=== PATIENT | male | born 1990 | race Two or more races ===

== ENCOUNTER 2017-04-18 01:38 | Emergency (ER) | payer SELFPAY ==
[~2017-04-18] VITALS: Ht 160 cm; Wt 52.5 kg
[2017-04-18 01:41] VITALS: BP 120/88
== END 2017-04-18 01:59 | disposition left against medical advice (07) ==
LOC: ED 01:53
DX: Z53.21 Procedure and treatment not carried out due to patient leaving prior to being seen by health care provider (principal)

== ENCOUNTER 2018-10-06 13:30 | Inpatient (IN) | payer MEDICAID ==
[~2018-10-06] VITALS: Ht 165.1 cm; Wt 49.4 kg
[2018-10-06] MEDS ORDERED: ONDANSETRON ODT 4 MG PO PRN (14:00)
[2018-10-06] MEDS ORDERED: DOCUSATE 100 MG CAPSULE PO PRN (14:00)
[2018-10-06] MEDS ORDERED: ACETAMINOPHEN 325 MG TABLET PO PRN (14:00)
[2018-10-06] MEDS ORDERED: BISACODYL 10 MG SUPP PR PRN (14:00)
[2018-10-06] MEDS ORDERED: POLYETHYLENE GLYCOL 17 GM PACKET PO PRN (14:00)
[2018-10-06] MEDS ORDERED: ONDA8TAB9 PO (14:56)
[2018-10-06] MEDS ORDERED: FAMO-79 PO (14:56)
[2018-10-06 15:12] VITALS: BP 107/74
[2018-10-06] MEDS ORDERED: PLEASE ENTER HEIGHT AND WEIGHT MC SCH (15:30)
[2018-10-06 15:35] VITALS: BP 107/74
[2018-10-06 15:59] LABS: HCT (SEDRATE) 52.3 % (39.2-51.8)
[2018-10-06 16:11] LABS: ANION GAP 8 mmol/L (5-15); CALCIUM 8.9 mg/dL (8.5-10.1); CHLORIDE 100 mmol/L (98-107); CHOLESTEROL, TOTAL 216 mg/dL (140-239); CREATININE 1.09 mg/dL (0.7-1.3); TRIGLYCERIDES 95 mg/dL (50-200); VLDL CHOLESTEROL 19 mg/dL (0-25)
[2018-10-06 16:37] LABS: FREE T4 (FREE THYROXINE) 1.78 ng/dL (0.76-1.46); HDL CHOL % 17 % (26-37); HDL CHOLESTEROL (DIRECT) 36 mg/dL (40-60); LDL CHOLESTEROL,CALCULATED 161 mg/dL (54-169); LDL/HDL RATIO 4.5 (0.5-3.0)
[2018-10-06] MEDS: NICOTINE 7 MG/24 HR PATCH.TD24 TD SCH (17:08)
[2018-10-06 19:47] VITALS: BP 103/70
[2018-10-06 20:35] LABS: AMPHETAMINE SCREEN, URINE Positive (Negative); BARBITURATE SCREEN, URINE Negative (Negative); BENZODIAZEPINE SCREEN, URINE Negative (Negative); CANNABINOID SCREEN, URINE Negative (Negative); COCAINE SCREEN, URINE Negative (Negative); METHADONE SCREEN, URINE Negative (Negative); OPIATE SCREEN, URINE Negative (Negative)
[2018-10-06] MEDS: RISPERIDONE 2 MG TABLET PO SCH (20:42)
[2018-10-06] MEDS: TRAZODONE 100MG TABLET PO SCH (20:42)
[2018-10-07 07:47] VITALS: BP 114/62
[2018-10-07] MEDS: RISPERIDONE 1 MG TABLET PO SCH (09:05)
[2018-10-07] MEDS: NICOTINE 7 MG/24 HR PATCH.TD24 TD SCH (17:00)
[2018-10-07 17:11] LABS: BASOPHILS # (AUTO) 0.02 x10^3/uL (0-0.1); BASOPHILS % (AUTO) 0 % (0-1); EOSINOPHILS # (AUTO) 0.04 x10^3/uL (0-0.4); EOSINOPHILS % (AUTO) 1 % (1-7); LYMPHOCYTES # (AUTO) 1.32 x10^3/uL (1-3.4); LYMPHOCYTES % (AUTO) 21 % (22-44); MD NO; MEAN CORPUSCULAR HEMOGLOBIN 32.8 pg (27.5-34.5); MEAN CORPUSCULAR HGB CONC 33.9 g/dL (33.2-36.2); MEAN CORPUSCULAR VOLUME 96.6 fL (81-97); MEAN PLATELET VOLUME 7.7 fL (7.4-10.4); MONOCYTES # (AUTO) 0.43 x10^3/uL (0.2-0.8); MONOCYTES % (AUTO) 7 % (2-9); NEUTROPHILS # (AUTO) 4.61 x10^3/uL (1.8-6.8); NEUTROPHILS % (AUTO) 72 % (42-75); PLATELET COUNT 281 x10^3/uL (130-400); RED BLOOD COUNT 5.13 x10^6/uL (4.38-5.82); RED CELL DISTRIBUTION WIDTH 12.3 % (9.4-14.8)
[2018-10-07] MEDS: LORazepam 0.5MG TABLET PO PRN (17:56)
[2018-10-07 19:46] VITALS: BP 108/72
[2018-10-07] MEDS: TRAZODONE 100MG TABLET PO SCH (20:33)
[2018-10-07] MEDS: RISPERIDONE 2 MG TABLET PO SCH (20:33)
[2018-10-08 07:31] VITALS: BP 112/70
[2018-10-08] MEDS: RISPERIDONE 1 MG TABLET PO SCH (08:57)
[2018-10-08] MEDS: NICOTINE 7 MG/24 HR PATCH.TD24 TD SCH (16:58)
[2018-10-08 19:40] VITALS: BP 112/75
[2018-10-08] MEDS: RISPERIDONE 2 MG TABLET PO SCH (20:22)
[2018-10-08] MEDS: LORazepam 0.5MG TABLET PO PRN (20:22)
[2018-10-08] MEDS: TRAZODONE 100MG TABLET PO SCH (20:22)
[2018-10-09 07:31] VITALS: BP 119/74
[2018-10-09] MEDS: RISPERIDONE 1 MG TABLET PO SCH (08:53)
[2018-10-09] MEDS: NICOTINE 7 MG/24 HR PATCH.TD24 TD SCH (17:00)
[2018-10-09] MEDS: LORazepam 0.5MG TABLET PO PRN (18:43)
[2018-10-09 19:47] VITALS: BP 117/78
[2018-10-09] MEDS: TRAZODONE 100MG TABLET PO SCH (20:20)
[2018-10-09] MEDS: RISPERIDONE 2 MG TABLET PO SCH (20:20)
[2018-10-10 07:19] VITALS: BP 105/74
[2018-10-10] MEDS: RISPERIDONE 1 MG TABLET PO SCH (08:17)
[2018-10-10] MEDS: LORazepam 0.5MG TABLET PO PRN ×2 (14:18→21:17)
[2018-10-10] MEDS: NICOTINE 7 MG/24 HR PATCH.TD24 TD SCH (16:21)
[2018-10-10 19:34] VITALS: BP 135/83
[2018-10-10] MEDS: RISPERIDONE 2 MG TABLET PO SCH (20:14)
[2018-10-10] MEDS: TRAZODONE 100MG TABLET PO SCH (20:14)
[2018-10-11 07:30] VITALS: BP 109/78
[2018-10-11] MEDS: RISPERIDONE 1 MG TABLET PO SCH (08:32)
[2018-10-11] MEDS: LORazepam 0.5MG TABLET PO PRN ×2 (11:14→18:32)
[2018-10-11] MEDS: NICOTINE 7 MG/24 HR PATCH.TD24 TD SCH (16:59)
[2018-10-11] MEDS ORDERED: NICO-485 TD (18:42)
[2018-10-11] MEDS ORDERED: RISP2TAB35 PO (18:42)
[2018-10-11] MEDS ORDERED: RISP1TAB45 PO (18:42)
[2018-10-11] MEDS ORDERED: TRAZ-137 PO (18:42)
[2018-10-11 19:28] VITALS: BP 107/69
[2018-10-11] MEDS: RISPERIDONE 2 MG TABLET PO SCH (20:46)
[2018-10-11] MEDS: TRAZODONE 100MG TABLET PO SCH (20:46)
[2018-10-12 07:20] VITALS: BP 132/80
[2018-10-12] MEDS: RISPERIDONE 1 MG TABLET PO SCH (08:13)
== END 2018-10-12 11:06 | DRG 885 ==
LOC: 3E 15:00
PROVIDERS: ADMIT Psychiatry & Neurology Psychiatry; ATTEND Psychiatry & Neurology Psychiatry
DX: F20.0 Paranoid schizophrenia (principal); F17.200 Nicotine dependence, unspecified, uncomplicated; G47.00 Insomnia, unspecified; Z79.899 Other long term (current) drug therapy; Z71.6 Tobacco abuse counseling
CPT/HCPCS: 36415; 71045; 80048; 80061; 80307; 82140; 82607; 82962; 84439; 84443; 85025; 85651; 86592; 93005